=== PATIENT | male | born 1945 | race Caucasian/White ===

== ENCOUNTER → 2017-05-05 | Outpatient (CLI) | payer OTHER ==
[~2017-05-05] MED LIST: ASPIR 8181 M1 PO; CENTRUM SILVER1 EAC4 PO; FLOMAX0.4 MG PO; LIPITOR10 MG PO; MOBIC15 MG PO; PROSCAR 5MG TABL5 M1 PO
--- NOTE | ~2017-05-05 | EKG ---
[place] [address] 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 RIDDLE : 1945 Requested By: Callie Rios Order Number: [id number] MD: Adrian Flower Measurements Intervals Moore Rate: 63 P: -21 AR: 161 QRS: -29 QRSD: 96 T: -39 QT: 416 QTc: 426 Interpretive Statements Sinus rhythm Abnormal R-wave progression, early transition Inferior infarct, age indeterminate Compared to ECG 09/09/2011 15:19:15 No significant change was found Electronically Signed On 05-06-2017 8:19:33 [employer] by Adrian Flower [email or web address] <ELECTRONICALLY SIGNED> By: Adrian Flower MD, [facility] 05/06/17 [id number] Adrian Flower MD, [facility] /EPI
== END | disposition home or self-care (01) ==
LOC: LITH 09:13
DX: N20.0 Calculus of kidney (principal); E78.00 Pure hypercholesterolemia, unspecified; G47.33 Obstructive sleep apnea (adult) (pediatric); Z98.890 Other specified postprocedural states